=== PATIENT | male | born 1950 | race African-American/Black ===

== ENCOUNTER 2022-10-02 03:59 | Emergency (ER) | payer MEDICARE, SELFPAY ==
--- NOTE | ~2022-10-02 | CT_ITS ---
EXAMINATION: CT abdomen pelvis wo con DATE: 10/02/2022 05:02 INDICATION: Low abdominal pain. Constipation. TECHNIQUE: Computed tomography (CT) of the abdomen and pelvis was performed without intravenous contr ast. Automated exposure control and iterative reconstruction technique were employed. The dose-length product was 291.92 mGy-cm. COMPARISON: CT abdomen and pelvis 06/08/2018 FINDINGS: The visualized portions of the lung bases demonstrate mild atelectasis. A calcified left jacque ng nodule is consistent with old granulomatous disease. No pleural effusion. The heart size is normal . There is subendocardial fat in lateral wall of left ventricle, consistent with old infarct. There a re coronary artery calcifications. No pericardial effusion. There is bilateral gynecomastia. There ar e cysts in the liver measuring up to 1.7 cm. The gallbladder, spleen, pancreas, and adrenal glands ar e normal. There are cysts in right kidney measuring up to 3.9 cm. There are 5 stones in right kidney measuring up to 8 mm. There are 3 stones in left kidney measuring up to 3 mm. The prostate is mildly enlarged. There is a large volume of stool in the colon. Stool distends the rectum. The appendix is n ot visualized. There are no pathologically enlarged lymph nodes. There is no free intraperitoneal flu id. There is mild lumbar spondylosis. IMPRESSION: 1. Large volume of stool in the colon with distention of the rectum. Reviewed, dictated and finalized at location A. ENT MANAGER
[2022-10-02 03:58] VITALS: BP 121/82; PULSE 79; RESP 20; TEMP 36.3; O2SAT 100
--- NOTE | 2022-10-02 04:12 | ECG_ITS ---
Measurements Intervals [place] Rate: 68 P: 16 FL: 146 QRS: 70 QRSD: 85 T: 69 QT: 367 QTc: 392 Interpretive Statements SINUS RHYTHM BASELINE ARTIFACT- I, II, III, AVR, AVL, V1-V2 NORMAL ECG NO PREVIOUS ECG AVAILABLE FOR COMPARISON Electronically Signed On 10-02-2022 6:37:21 CORE MACHINE OPERATOR by Chadwick Jimenez D.O.
--- NOTE | 2022-10-02 04:18 | ED.GENADULT ---
HPI - General Adult General Chief complaint: Abdominal Pain Stated complaint: abd pain, constipation Time Seen by Provider: 10/02/22 04:00 History of Present Illness HPI narrative: 72-year-old male with history of aphasia secondary to a stroke presents to the emergency department from home for evaluation of 3 days of constipation and recent abdominal pain. states that the patient has had history of constipation previously. states that approximately 3 days since the patient had a bowel movement. Tonight the patient to be kept complaining of lower abdominal pain. Patient does have aphasia but is able to answer some questions and patient does confirm he is having abdominal pain. states that the patient was attempting to get to the bathroom when he became weak and sat on the ground. states that he did appear somnolent for a few minutes but then returned back to his baseline. Patient had no injury from this episode and is back at his baseline at this time. states that the patient had no loss of consciousness. Patient does have a history of CVA and chronic kidney disease Related Data Allergies Allergy/AdvReac Type Severity Reaction Status Date / Time divalproex sodium Allergy Unknown Verified 10/02/22 04:12 [From [facility]] Review of Systems Review of Systems: ROS unobtainable: Yes unobtainable due to medical condition Exam Narrative: APPEARANCE: Well appearing, no pain, no distress, well-nourished. HEAD: normocephalic, atraumatic. EYES: PERRLA/EOMI, conjunctivae clear. NOSE: Normal no drainage NECK: Supple. No adenopathy, no masses. RESPIRATORY: Airway patent, respirations nonlabored. Clear to auscultation bilaterally, no rales, rhonchi, wheezing. CARDIOVASCULAR: Regular rate and rhythm without murmurs rubs or gallops. ABDOMINAL: Soft, nondistended, normal bowel sounds, suprapubic tenderness to palpation. Digital rectal exam: Nonthrombosed hemorrhoids. No large stool ball within the rectal vault. Hemoccult negative MUSCULOSKELETAL: Moves all extremities. Strength/ROM intact, No edema, No calf tenderness. NEURO: Alert. Cranial nerves II through XII intact. Grossly intact SKIN: Warm, dry. Normal Color Course Course Emergency Course: On reexamination patient has no tenderness to palpation and gestures that he has no pain. Patient states he feels improved. Patient's baseline creatinine is 2.4. His creatinine here is 2.5. No significant VAL. Patient states he does feel improved. CT scan showed no evidence of bowel obstruction but did show a large stool burden. Concerns for cystitis on CT scan but UA does not show evidence of a urinary tract infection. has been giving a subtherapeutic dose of his lactulose to help with his constipation. was given a 20 mL syringe to help measure out his 15 mL dose. Patient was able to ambulate at his baseline. Patient's was present during the interview and discharge. was comfortable with the plan for discharge and close follow-up. was educated on reasons to return to the emergency department. All question concerns were addressed. Patient's episode of weakness in the bathroom could be secondary to a vasovagal episode. Patient was having abdominal cramping at the time. While patient's CT shows no evidence of obstruction patient does have a significant stool burden. No evidence of UTI Vital Signs Vital signs: Vital Signs Temperature 97.4 F L 10/02/22 03:58 Pulse Rate 79 10/02/22 03:58 Respiratory Rate 20 10/02/22 03:58 Blood Pressure 121/82 10/02/22 03:58 Pulse Oximetry 100 10/02/22 03:58 Oxygen Delivery Room Air 10/02/22 03:58 Temperature 97.4 F L 10/02/22 03:58 Pulse Rate 89 10/02/22 05:43 Respiratory Rate 20 10/02/22 03:58 Blood Pressure 156/80 H 10/02/22 05:43 Pulse Oximetry 100 10/02/22 03:58 Oxygen Delivery Room Air 10/02/22 03:58 Medical Decision Making Vital Signs Vital Sign
[2022-10-02 04:24] LABS: Basophils Absolute Auto 0.1 K/mm3 (0.0-0.1); Basophils Percent Auto 1.2 % (0.2-1.2); Eosinophils Absolute Auto 0.3 K/mm3 (0-0.3); Eosinophils Percent Auto 4.7 % (0-4.4); Hematocrit 34.3 % (42.0-52.0); Hemoglobin 10.2 g/dL (14.0-18.0); Immature Granulocyte Absolute 0.02 K/mm3 (0.00-0.031); Immature Granulocyte Percent A 0.4 % (0-0.5); Lymphocytes Absolute Auto 1.44 K/mm3 (0.9-3.2); Lymphocytes Percent Auto 25.3 % (18.3-44.2); Mean Corpuscular HGB Conc 29.7 g/dl (32-36); Mean Corpuscular Hemoglobin 29.1 pg (26-34); Mean Corpuscular Volume 97.7 fl (80-100); Mean Platelet Volume 8.8 fl (7.4-10.4); Monocytes Absolute Auto 0.7 K/mm3 (0.1-0.6); Monocytes Percent Auto 12.6 % (2.6-8.5); Neutrophils Absolute Auto 3.2 K/mm3 (1.3-6.7); Neutrophils Percent Auto 55.8 % (45.5-73.1); Platelet Count Result 323 k/mm3 (150-375); Red Blood Count 3.51 M/mm3 (4.6-6.20); Red Cell Distribution Width 12.8 % (11.5-14.5); White Blood Count 5.7 K/mm3 (4.5-10.0)
[2022-10-02 04:33] LABS: Lactic Acid Reflex 1.1 mmol/L (0.7-2.0)
[2022-10-02 04:34] LABS: Alanine Aminotransferase 37 U/L (6-50); Albumin Level 3.5 g/dL (3.5-5.1); Alkaline Phosphatase 80 U/L (38-126); Anion Gap 5 mmol/L (8-16); Aspartate Amino Transferase 29 U/L (17-59); Bilirubin,Total 0.3 mg/dL (0.2-1.3); Blood Urea Nitrogen 43 mg/dL (9-20); Calcium 8.7 mg/dL (8.4-10.2); Carbon Dioxide 25 mmol/L (22-30); Chloride 105 mmol/L (98-107); Estimated CRCL calculation 24 ml/min; Estimated Glomerular Filt Rate 31; Glucose 159 mg/dL (65-110); Lipase 189 U/L (23-300); Potassium 4.2 mmol/L (3.4-5.0); Sodium 135 mmol/L (137-145)
[2022-10-02 04:49] LABS: Appearance Urine Clear (Clear); Bilirubin Urine Negative (Negative); Blood Urine Negative (Negative); Color Urine Yellow (Yellow); Glucose Urine UA 3+ mg/dL (Negative); Ketones Urine Negative (Negative); Leukocyte Esterase Ur Negative LEU/UL (Negative); Nitrate Urine Negative (Negative); Protein Urine Negative (Negative); Specific Grav Ur 1.015 (1.001-1.035); Urobilinogen Urine 0.2 mg/dL (<2.0)
[2022-10-02 04:53] LABS: WBC Urine 0-3 /hpf
[2022-10-02 05:01] LABS: Add Urine Microscopic? YES
[2022-10-02] MEDS: SODIUM CHLORIDE 0.9% IV 1,000 ML 500 ML IV CONT (05:02)
[2022-10-02 05:40] VITALS: BP 139/70; PULSE 75
[2022-10-02 05:41] VITALS: BP 140/76; PULSE 80
[2022-10-02 05:43] VITALS: BP 156/80; PULSE 89
== END 2022-10-02 06:08 | disposition home or self-care (01) ==
PROVIDERS: Emergency Provider Emergency Medicine; PCP Internal Medicine
DX: K59.00 Constipation, unspecified (principal); I69.320 Aphasia following cerebral infarction; N18.9 Chronic kidney disease, unspecified
CPT/HCPCS: 36415; 74176; 80053; 81001; 83605; 83690; 85025; 93005; 96360; 99284; J7030

== ENCOUNTER → 2023-04-03 14:08 | Outpatient (CLI) | payer MEDICARE, SELFPAY ==
--- NOTE | ~2023-04-03 | XR_ITS ---
EXAM: XR abdomen/kub 1V DATE: 04/03/2023 14:52 HISTORY: bilateral kidney stones . COMPARISON: CT abdomen pelvis 10/02/2022. FINDINGS: Bibasilar scar/atelectasis. Normal bowel gas pattern. No organomegaly. Ill-defined calcifi cation visible overlying the right renal shadow. No definite left renal calcification. Mild lumbar sc oliosis. Mild multilevel lumbar degenerative disc disease. Mild bilateral hip osteoarthritis. Scatter ed vascular calcifications. IMPRESSION: Right nephrolithiasis, better seen in prior CT. Previously detected left renal calcificat ions not radiograph is visible. Reviewed, dictated and finalized at location K. IMPRESSION: Right nephrolithiasis, better seen in prior CT. Previously detected left renal calcifications not radiograph is visible.
== END ==
PROVIDERS: PCP Nurse Practitioner Family; Visit Provider Nurse Practitioner Family
DX: N20.0 Calculus of kidney (principal)
CPT/HCPCS: 74018

== ENCOUNTER 2024-02-04 14:50 | Outpatient (CLI) | payer MEDICARE, SELFPAY ==
--- NOTE | ~2024-02-04 | XR_ITS ---
EXAM: XR humerus RT DATE: 02/04/2024 15:29 HISTORY: stroke induced seizures . COMPARISON: None available. FINDINGS: Decreased mineralization. No fracture or dislocation. No lytic or blastic lesion. Degenera tive changes in the shoulder joint. Subacute/chronic Hill-Sachs defect. No erosion or periosteal palomares ge. Soft tissues within normal limits. IMPRESSION: No acute fracture in the right humerus. Subacute/chronic Hill-Sachs defect, correlate wit h history of prior dislocation. Reviewed, dictated and finalized at location K. IMPRESSION: No acute fracture in the right humerus. Subacute/chronic Hill-Sachs defect, correlate with history of prior dislocation.
--- NOTE | ~2024-02-04 | XR_ITS ---
EXAM: XR shoulder RT min 2V DATE: 02/04/2024 15:29 HISTORY: Stroke induced seizures . COMPARISON: None available. FINDINGS: Decreased mineralization. No acute fracture or dislocation. No lytic or blastic lesion. Cu ff calcific tendinitis. Mild AC joint and glenohumeral joint osteoarthritis. Subacute/chronic appeari ng Hill-Sachs defect. No erosion or periosteal change. Soft tissues within normal limits. IMPRESSION: No acute fracture detected in the right shoulder. Subacute/chronic appearing Hill-Sachs d efect, correlate with history of prior dislocation. Reviewed, dictated and finalized at location K. IMPRESSION: No acute fracture detected in the right shoulder. Subacute/chronic appearing Hill-Sachs defect, correlate with history of prior dislocation.
== END 2024-02-04 14:51 ==
PROVIDERS: PCP Internal Medicine
DX: G40.909 Epilepsy, unspecified, not intractable, without status epilepticus (principal); I63.9 Cerebral infarction, unspecified; W19.XXXA Unspecified fall, initial encounter
CPT/HCPCS: 73030; 73060

== ENCOUNTER 2024-05-07 14:00 | Outpatient (CLI) | payer MEDICARE, SELFPAY ==
--- NOTE | ~2024-05-07 | XR_ITS ---
EXAMINATION: XR abdomen/kub 1V DATE: 05/07/2024 14:17 INDICATION: Bilateral kidney stones. TECHNIQUE: A supine view of the abdomen on 2 radiographs was obtained. COMPARISON: Abdomen radiographs 04/03/2023, 10/02/2022 FINDINGS: There are no dilated loops of bowel. There is a moderate volume of stool in the colon. IMPRESSION: 1. No visible urolithiasis. Reviewed, dictated and finalized at location A. IMPRESSION: 1. No visible urolithiasis.
== END 2024-05-07 14:01 | disposition home or self-care (01) ==
PROVIDERS: PCP Internal Medicine; Visit Provider Urology
DX: N20.0 Calculus of kidney (principal)
CPT/HCPCS: 74018